=== PATIENT | male | born 1945 | race Caucasian/White ===

== ENCOUNTER 2017-09-28 14:27 | Outpatient (CLI) | payer MEDICARE | END 2017-09-28 14:28 | disposition home or self-care (01) | LOC: BICULT 14:27 | PROVIDERS: ATTEND Internal Medicine Geriatric Medicine | DX: N18.2 Chronic kidney disease, stage 2 (mild) (principal); N21.0 Calculus in bladder; N28.1 Cyst of kidney, acquired | CPT/HCPCS: 76770 ==

== ENCOUNTER 2017-10-16 13:36 | Emergency (ER) | payer MEDICARE ==
[2017-10-16 14:23] LABS: #Basophils 0.1 thou/uL (0.0-0.2); #Eosinphils 0.4 thou/uL (0.0-0.7); #Lymphocytes 1.5 thou/uL (1.20-3.40); #Monocytes 0.6 thou/uL (0.11-0.59); #Neutrophils 5.4 thou/uL (1.40-6.50); %Basophils 0.7 % (0.0-1.0); %Eosinophils 5.4 % (0.0-10.0); %Lymphocytes 18.6 % (21.0-51.0); %Monocytes 7.6 % (0.0-10.0); %Neutrophils 67.6 % (42.0-75.0); Hemoglobin 15.3 g/dL (14.0-18.0); Mean Corpuscular Hemoglobin 30.8 pg (27.0-31.0); Mean Corpuscular Volume 90.5 fL (78.0-98.0); Mean Platelet Volume 9.1 fL (7.4-10.4); Platelet Count 150 thou/uL (130-400); RBC Distribution Width 12.5 % (11.5-14.5); Red Blood Cell (RBC) Count 4.97 mill/uL (4.70-6.10)
[2017-10-16 14:47] LABS: ALT (SGPT) 29 U/L (8-55); AST (SGOT) 27 U/L (5-34); Albumin 4.2 g/dL (3.4-4.8); Alkaline Phosphatase 98 U/L (40-150); Anion Gap 14 mmol/L (10-20); BUN (Urea Nitrogen) 21 mg/dL (8.4-25.7); Bilirubin, Total 0.4 mg/dL (0.2-1.2); CK (CPK) 190 U/L (30-200); Calc. Creatinine Clearance 0 mL/min (70-130); Calcium 9.3 mg/dL (7.8-10.44); Carbon Dioxide 20 mmol/L (23-31); Chloride 107 mmol/L (98-107); Estimated GFR-MDRD 44; Globulin 3.2 g/dL (2.4-3.5); Glucose 116 mg/dL (83-110); Magnesium 2.3 mg/dL (1.6-2.6); Potassium 3.7 mmol/L (3.5-5.1); Protein, Total 7.4 g/dL (5.8-8.1); Sodium 137 mmol/L (136-145); Troponin I Less than 0.010 ng/mL (< 0.028)
[2017-10-16 16:41] LABS: Bilirubin Negative (Negative); Blood, Urine Negative (Negative); Clarity CLEAR (Clear); Glucose, Urine (Dipstick) Negative (Negative); Leukocyte Moderate (Negative); Nitrite Negative (Negative); Protein, Urine (Dipstick) Negative (Neg-Trace); Specific Gravity, Urine 1.011 (1.002-1.036); Urobilinogen 0.2 mg/dL (0.2-1.0)
[2017-10-16 16:50] LABS: Bacteria/HPF None Seen HPF (None Seen); Hyaline Casts/LPF 0-3 HYALINE CAST LPF (0-3 Hyaline); Pathc Cast-AUWi Flag 0.72 (0-2.49); RBC/HPF 0-3 HPF (0-3); Squamous Epithelial 0-3 HPF (0-3); WBC/HPF 21-50 HPF (0-3)
== END 2017-10-16 19:09 | disposition home or self-care (01) ==
LOC: ERS 13:36
DX: R00.1 Bradycardia, unspecified (principal); R53.1 Weakness; I10 Essential (primary) hypertension
CPT/HCPCS: 36415; 80053; 81003; 81015; 82553; 83605; 83735; 83880; 84484; 85025; 87077; 87086; 87186; 93005; 96360

== ENCOUNTER 2018-03-09 06:53 | Outpatient (CLI) | payer MEDICARE ==
[2018-03-09 15:02] LABS: Hemoglobin 15.5 g/dL (14.0-18.0); Mean Corpuscular HGB CONC 33.2 g/dL (32.0-36.0); Mean Corpuscular Hemoglobin 30.4 pg (27.0-31.0); Mean Corpuscular Volume 91.5 fL (78.0-98.0); Mean Platelet Volume 9.1 fL (7.4-10.4); Platelet Count 171 thou/uL (130-400); RBC Distribution Width 11.9 % (11.5-14.5); Red Blood Cell (RBC) Count 5.08 mill/uL (4.70-6.10); White Blood Cell (WBC) Count 9.1 thou/uL (4.8-10.8)
[2018-03-09 15:09] LABS: PTT 27.7 SEC (22.9-36.1); Prothrombin Time 13.4 SEC (12.0-14.7)
[2018-03-09 15:21] LABS: Anion Gap 14 mmol/L (10-20); BUN (Urea Nitrogen) 30 mg/dL (8.4-25.7); Calc. Creatinine Clearance 0 mL/min (70-130); Calcium 9.7 mg/dL (7.8-10.44); Carbon Dioxide 24 mmol/L (23-31); Chloride 107 mmol/L (98-107); Estimated GFR-MDRD 40; Glucose 101 mg/dL (83-110); Potassium 4.6 mmol/L (3.5-5.1); Sodium 140 mmol/L (136-145)
== END 2018-03-09 06:54 | disposition home or self-care (01) ==
LOC: LABBT 06:53
PROVIDERS: ATTEND Urology
DX: Z01.812 Encounter for preprocedural laboratory examination (principal); N21.0 Calculus in bladder
CPT/HCPCS: 80048; 85027; 85610; 85730; 87077; 87086; 87186

== ENCOUNTER 2018-03-15 05:40 | Day surgery (SDC) | payer MEDICARE ==
[2018-03-09 14:10] VITALS: BMI 34.2
[2018-03-15] MEDS ORDERED: Fentanyl 100 MCG/2 ML VIAL ONE ×2 (06:44→07:20)
[2018-03-15] MEDS ORDERED: Sodium Chloride 0.9% 100 ML ONE (07:25)
[2018-03-15] MEDS ORDERED: CEFAZOLIN 1 GM VIAL ONE (07:25)
[2018-03-15] MEDS ORDERED: Dexamethasone 20 MG/5 ML VIAL ONE (13:54)
[2018-03-15] MEDS ORDERED: PROPOFOL 200 MG/20 ML VIAL ONE (13:54)
[2018-03-15] MEDS ORDERED: Lidocaine 1% PF 5 ML VIAL ONE (13:54)
[2018-03-15] MEDS ORDERED: Succinylcholine Chloride 20 MG/ML 10 ml SYRINGE FS ONE (13:54)
[2018-03-15] MEDS ORDERED: Ondansetron PF 4 MG/2 ML Vial ONE (13:54)
--- NOTE | 2018-03-15 15:13 | OP ---
DATE OF PROCEDURE: 03/15/2018 PREOPERATIVE DIAGNOSIS: Bladder stone. POSTOPERATIVE DIAGNOSIS: Bladder stone. PROCEDURES PERFORMED: Cysto and laser lithotripsy of bladder stones. ANESTHETIC: General. ESTIMATED BLOOD LOSS: Less than 100. DRAINS PLACED: A 20-[place] Morales with about 20 mL in the balloon. FINDINGS: Greater than 2 cm bladder stone, very large prostate, mild meatal stenosis that is not significant enough to require dilatation to the 22-[place] sheath. DESCRIPTION OF PROCEDURE: After obtained written and verbal consent from the patient, after receiving 1 g of Ancef, he was taken to the operating suite. He was placed in supine position on the treatment table. PlexiPulses were placed on his lower extremities and turned on. He was given a general anesthetic and oral obturator intubation. He was then placed in the dorsal lithotomy position. He was sterilely prepped and draped. Cystoscopy was performed with a 22-[place] sheath. This was well lubricated and gently passed through the male urethra through the prostatic urethra into the urinary bladder under direct vision with the aid of a 30-degree lens video camera and monitor. The bladder was filled and emptied number of times being examined with both the 30 and 70-degree lens. At this point, we went back to the 30-degree lens and brought in a holmium laser fiber and used this to break up the stone into multiple fragments. We then took out these fragments. We then reinspected the bladder, found no significant bladder stones remaining. Ureteral orifices in normal position, uninjured. There was no evidence of any significant injury to the bladder itself. There was some bleeding from the prostatic urethra and some mucosal bleeding is common after this, nothing of any significance. At this point, the instruments were removed. Morales catheter was placed. It was hand irrigated with clear to light pink. It was then hooked up to a drainage bag. He was taken out of the dorsal lithotomy position, awakened, extubated, and taken by stretcher to the recovery room. Used a Velcro leg strap to gently secure the Morales to his right leg. Job ID: [id number]
--- NOTE | 2018-03-18 05:34 | PQF ---
[facility] POST DISCHARGE CLINICAL DOCUMENTATION IMPROVEMENT CLARIFICATION FORM l Todays Date: 03/18/18 l Patients Name NIKO SMITH JR l l l Admit Date 03/15/18 l Disch Date 03/15/18 Commercial Driver Name Gino Carroll Email: [email or web address] Cell: [phone] To be completed by Commercial Driver: Present Clinical Indicators - Signs / Symptoms Results and Location in Medical Record [ ] Documentation of: [ ] [ ] Documentation of: [ ] [ ] Documentation of: [ ] [ ] Documentation of: [ ] [ ] Risks [ ] [ ] [ ] Treatment [x ] Greater than 2cm bladder stone Query if bladder stone is greater than or equal to 2.5 cm [ ] [ ] To be completed by Physician: VASILIY GUPTA The documentation in this patients record requires clarification to ensure coding compliance and accuracy. Check the appropriate box and include in your discharge summary. [ ] [ ] [ ] [ ] Please check this box if this does not apply to this patient [ ] Unable to determine [ ] Other diagnosis: Review the following information and exercise your independent professional judgment in responding to the clarification. Based upon the clinical findings, risk factors, and treatment, please clarify if you are treating one of the above probable or suspected diagnoses. Physician Signature: Date Time MTDD
[2018-03-18 14:20] LABS: CA Oxalate Monohydrate 97 % (.); Color Brown (.); Comment Note: (.); Stone Weight 450.3 mg (.)
== END 2018-03-15 12:14 | disposition home or self-care (01) ==
LOC: SDC 05:40
PROVIDERS: ATTEND Urology
PROC: 0TCB8ZZ Extirpation of Matter from Bladder, Via Natural or Artificial Opening Endoscopic (ICD-10-PCS; principal; 2018-03-15)
DX: N21.0 Calculus in bladder (principal); N40.0 Benign prostatic hyperplasia without lower urinary tract symptoms; N35.911 Unspecified urethral stricture, male, meatal; I10 Essential (primary) hypertension; Z79.82 Long term (current) use of aspirin; Z79.899 Other long term (current) drug therapy; Z88.5 Allergy status to narcotic agent
CPT/HCPCS: 52317; 82365; 88300; C1758; J0690; J1100; J2001; J2405; J2704; J3010; J7050

== ENCOUNTER 2019-07-25 09:34 | Outpatient (CLI) | payer MEDICARE ==
--- NOTE | 2019-07-25 15:34 | MRI ---
MRI OF THE PELVIS WITHOUT AND WITH CONTRAST: Comparison: None History: Prostate cancer Technique: Multiplanar, multisequence MRI images were obtained of the prostate without and with IV co ntrast. FINDINGS: There is moderate to severe hypertrophy of the central gland consistent BPH. Prostate volume is estim ated at 110 ml. Scattered areas of low T2 signal are seen in the central gland of the prostate. No di screte suspicious low T2 signal lesion is seen within the central gland of the prostate and the scatt ered foci of low T2 signal most likely representing BPH nodules. No restricted diffusion or low signa l is seen on ACD map in the peripheral zone of the prostate. The seminal vesicles are intact. The neurovascular bungles are intact. No pelvic adenopathy is seen. No marrow signal abnormality is present. The post contrast images show no suspicious areas of early enhancement in the prostate. The delayed i mages were not performed and the exam was terminated early because of too high of a temperature on th e MRI magnet. IMPRESSION: PIRADS category 2 - low likelihood that a clinically significant cancer is present. POS: [id number]
[2019-07-25] MEDS ORDERED: Magnevist 469MG/ML 20 ML VIAL ONE (15:46)
== END 2019-07-25 09:35 | disposition home or self-care (01) ==
LOC: TBSIIMAG 09:34
PROVIDERS: ATTEND Urology
DX: C61 Malignant neoplasm of prostate (principal)
CPT/HCPCS: 72197; 82565; A9579

== ENCOUNTER 2021-07-13 04:41 | Observation (INO) | payer MEDICARE ==
[2021-07-13] MEDS ORDERED: Nitroglycerin 2% Ointment 1 INCH/1 GM Packet ONE (05:24)
[2021-07-13] MEDS ORDERED: Aspirin 325 MG TAB ONE (05:24)
[2021-07-13 05:29] LABS: #Basophils 0.1 thou/uL (0.0-0.2); #Eosinphils 0.5 thou/uL (0.0-0.7); #Lymphocytes 1.5 thou/uL (1.20-3.40); #Monocytes 0.8 thou/uL (0.11-0.59); #Neutrophils 6.7 thou/uL (1.40-6.50); %Basophils 0.6 % (0.0-1.0); %Eosinophils 5.3 % (0.0-10.0); %Lymphocytes 15.2 % (21.0-51.0); %Monocytes 8.8 % (0.0-10.0); %Neutrophils 70.1 % (42.0-75.0); Hemoglobin 14.7 g/dL (14.0-18.0); Mean Corpuscular HGB CONC 33.2 g/dL (32.0-36.0); Mean Corpuscular Hemoglobin 31.2 pg (27.0-31.0); Mean Corpuscular Volume 94.1 fL (78.0-98.0); Mean Platelet Volume 8.4 fL (7.4-10.4); Platelet Count 159 thou/uL (130-400); Red Blood Cell (RBC) Count 4.71 mill/uL (4.70-6.10); White Blood Cell (WBC) Count 9.6 thou/uL (4.8-10.8)
[2021-07-13 05:52] LABS: ALT (SGPT) 34 U/L (8-55); AST (SGOT) 26 U/L (5-34); Albumin 3.9 g/dL (3.4-4.8); Alkaline Phosphatase 69 U/L (40-110); Anion Gap 11 mmol/L (10-20); BUN (Urea Nitrogen) 25 mg/dL (8.4-25.7); Bilirubin, Total 1.1 mg/dL (0.2-1.2); Calc. Creatinine Clearance 0 mL/min (70-130); Carbon Dioxide 24 mmol/L (23-31); Chloride 105 mmol/L (98-107); Globulin 2.8 g/dL (2.4-3.5); Glucose 114 mg/dL (83-110); Lipase 41 U/L (8-78); Potassium 4.3 mmol/L (3.5-5.1); Protein, Total 6.7 g/dL (5.8-8.1); Sodium 136 mmol/L (136-145)
[2021-07-13] MEDS ORDERED: Acetaminophen 325 MG TAB PO PRN (08:18)
[2021-07-13 08:55] LABS: Troponin I Less than 0.010 ng/mL (< 0.028)
[2021-07-13] MEDS ORDERED: Lisinopril 20 MG TAB PO SCH (09:00)
[2021-07-13] MEDS: Finasteride 5 MG TAB PO SCH (10:15)
[2021-07-13] MEDS: Amlodipine 5 MG TAB PO SCH (10:15)
[2021-07-13] MEDS: Loratadine 10 MG TAB PO SCH (10:15)
[2021-07-13 10:51] VITALS: BMI 35.6
[2021-07-13 11:21] LABS: SARS-CoV-2 NAA Rapid Test Not Detected (NotDetected)
[2021-07-13] MEDS: Sodium Chloride 0.9% 1,000 ML IV SCH ×2 (11:53→21:33)
[2021-07-13 12:02] LABS: Troponin I Less than 0.010 ng/mL (< 0.028)
[2021-07-13] MEDS: Nitroglycerin 2% Ointment 1 INCH/1 GM Packet TOP SCH ×2 (14:49→22:33)
[2021-07-13 15:10] LABS: Bilirubin Negative (Negative); Blood, Urine Negative (Negative); Clarity Clear (Clear); Glucose, Urine (Dipstick) Normal (Negative); Ketone, Urine Negative (Negative); Leukocyte Negative Leu/uL (Negative); Nitrite Negative (Negative); Protein, Urine (Dipstick) Negative (Neg-Trace); Specific Gravity, Urine 1.044 (1.002-1.036); Urobilinogen Normal mg/dL (Less than 2)
[2021-07-13] MEDS ORDERED: Morphine 2 MG/ML VIAL SLOW IVP PRN (16:23)
[2021-07-13] MEDS ORDERED: Iopamidol-370 76% 500 ML 1 ML ONE (16:24)
[2021-07-13] MEDS ORDERED: Ibuprofen 800 MG TAB PO SCH (16:30)
[2021-07-13] MEDS ORDERED: Simvastatin 10 MG TAB PO SCH (21:00)
[2021-07-13] MEDS ORDERED: ALPRAZolam 0.5 MG TAB PO SCH (21:00)
[2021-07-14] MEDS: Nitroglycerin 2% Ointment 1 INCH/1 GM Packet TOP SCH (06:14)
[2021-07-14] MEDS: Finasteride 5 MG TAB PO SCH (08:44)
[2021-07-14] MEDS: Amlodipine 5 MG TAB PO SCH (08:44)
[2021-07-14] MEDS: Loratadine 10 MG TAB PO SCH (08:44)
[2021-07-14] MEDS: Sodium Chloride 0.9% 1,000 ML IV SCH (08:47)
[2021-07-14] MEDS ORDERED: Aspirin 81 mg Enteric Coated Tablet PO SCH (09:00)
[2021-07-14 11:38] VITALS: BP 151/72; TEMP 97.6
== END 2021-07-14 15:59 | disposition home or self-care (01) ==
LOC: ERS 04:41 → 2SW 07:48
PROVIDERS: ADMIT Hospitalist; ATTEND Hospitalist
DX: R07.81 Pleurodynia (principal); M25.512 Pain in left shoulder; I25.10 Atherosclerotic heart disease of native coronary artery without angina pectoris; R50.9 Fever, unspecified; I10 Essential (primary) hypertension; E78.5 Hyperlipidemia, unspecified; I08.8 Other rheumatic multiple valve diseases; Z85.46 Personal history of malignant neoplasm of prostate; Z79.82 Long term (current) use of aspirin; Z79.899 Other long term (current) drug therapy; Z88.5 Allergy status to narcotic agent; Z95.5 Presence of coronary angioplasty implant and graft; Z20.822 Contact with and (suspected) exposure to COVID-19
CPT/HCPCS: 0240U; 71045; 71275; 80053; 81003; 83690; 84484 ×2; 85025; 85379; 87040; 93005; 93306; 94760; 99285; 36415; 93010; 96360; 96361; G0378; J7050; Q9967

== ENCOUNTER 2024-01-11 04:16 | Emergency (ER) | payer MEDICARE ==
[2024-01-11] MEDS ORDERED: Benzonatate 100 MG CAP ONE (04:59)
[2024-01-11 05:50] LABS: #Basophils 0.08 10x3/uL (0.0-0.2); %Basophils 0.9 % (0.0-1.0); %Eosinophils 6.5 % (0.0-10.0); %Monocytes 9.1 % (0.0-10.0); Hematocrit 43.2 % (42.0-52.0); Hemoglobin 13.9 g/dL (14.0-18.0); Mean Corpuscular HGB CONC 32.2 g/dL (32.0-36.0); Mean Corpuscular Hemoglobin 30.3 pg (27.0-31.0); Mean Corpuscular Volume 94.3 fL (78.0-98.0); Mean Platelet Volume 10.6 fL (7.4-10.4); Platelet Count 179 10x3/uL (130-400); RBC Distribution Width 12.7 % (11.5-14.5); Red Blood Cell (RBC) Count 4.58 mill/uL (4.70-6.10)
[2024-01-11 05:51] LABS: ALT (SGPT) 55 U/L (8-55); AST (SGOT) 51 U/L (5-34); Albumin 3.6 g/dL (3.4-4.8); Alkaline Phosphatase 73 U/L (40-110); Anion Gap 14 mmol/L (10-20); BUN (Urea Nitrogen) 21 mg/dL (8.4-25.7); Bilirubin, Total 0.6 mg/dL (0.2-1.2); Calc. Creatinine Clearance 0 mL/min (70-130); Calcium 9.2 mg/dL (7.8-10.44); Carbon Dioxide 19 mmol/L (23-31); Chloride 109 mmol/L (98-107); Estimated GFR 52; Glucose 86 mg/dL (83-110); Lipase 55 U/L (8-78); Potassium 4.2 mmol/L (3.5-5.1); Protein, Total 6.6 g/dL (5.8-8.1); Sodium 138 mmol/L (136-145)
[2024-01-11 05:56] LABS: Troponin I Less than 0.010 ng/mL (< 0.028)
[2024-01-11] MEDS ORDERED: Amlodipine 5 MG TAB ONE (06:51)
== END 2024-01-11 07:24 | disposition home or self-care (01) ==
LOC: ERS 04:16
DX: J18.9 Pneumonia, unspecified organism (principal); I10 Essential (primary) hypertension; E78.5 Hyperlipidemia, unspecified; I25.10 Atherosclerotic heart disease of native coronary artery without angina pectoris; Z95.0 Presence of cardiac pacemaker; Z95.5 Presence of coronary angioplasty implant and graft
CPT/HCPCS: 36415; 71045; 80053; 83605; 83690; 84484; 85025; 87428; 93005

== ENCOUNTER 2024-10-28 11:00 | Day surgery (SDC) | payer MEDICARE ==
[2024-10-26 15:55] VITALS: BMI 34.4
[2024-10-28] MEDS ORDERED: Iopamidol 370 76% 100 ML VIAL ONE (11:07)
[2024-10-28] MEDS ORDERED: Lidocaine 1% (PF) 30 ML VIAL ONE (12:57)
[2024-10-28] MEDS ORDERED: Heparin 10,000 UNITS/ 10 ML VIAL ONE (12:57)
[2024-10-28] MEDS ORDERED: PHENYLEPHRINE-NS 100 MCG/ML 10 ML SYRINGE ONE (12:58)
[2024-10-28] MEDS ORDERED: Nitroglycerin 50 MG/250 ML BOT 250 ML ONE (12:58)
== END 2024-10-28 21:45 | disposition home or self-care (01) ==
LOC: CCL 11:00
PROVIDERS: ATTEND Internal Medicine Cardiovascular Disease
PROC: 4A023N7 Measurement of Cardiac Sampling and Pressure, Left Heart, Percutaneous Approach (ICD-10-PCS; principal; 2024-10-28)
DX: I25.10 Atherosclerotic heart disease of native coronary artery without angina pectoris (principal); E78.5 Hyperlipidemia, unspecified; I11.0 Hypertensive heart disease with heart failure; N18.9 Chronic kidney disease, unspecified; Z88.5 Allergy status to narcotic agent; Z79.899 Other long term (current) drug therapy; Z79.01 Long term (current) use of anticoagulants
CPT/HCPCS: 85347; 93458; C1769 ×3; C1887; C1894 ×2; J1644; J2250; 99152; 99153; J0461; J3010

== ENCOUNTER → 2024-10-28 | Day surgery (SDC) | payer MEDICARE ==
[2024-10-26 16:31] LABS: #Basophils 0.08 10x3/uL (0.0-0.2); #Eosinophils 0.66 10x3/uL (0.0-0.7); #Monocytes 0.87 10x3/uL (0.11-0.59); #Neutrophils 6.20 10x3/uL (1.40-6.50); %Basophils 0.8 % (0.0-1.0); %Eosinophils 6.7 % (0.0-10.0); %Lymphocytes 19.9 % (21.0-51.0); %Monocytes 8.9 % (0.0-10.0); %Neutrophils 63.5 % (42.0-75.0); Hematocrit 46.0 % (42.0-52.0); Hemoglobin 15.2 g/dL (14.0-18.0); Mean Corpuscular Hemoglobin 30.0 pg (27.0-31.0); Mean Corpuscular Volume 90.9 fL (78.0-98.0); Platelet Count 173 10x3/uL (130-400); Red Blood Cell (RBC) Count 5.06 mill/uL (4.70-6.10); White Blood Cell (WBC) Count 9.78 10x3/uL (4.8-10.8)
[2024-10-26 17:09] LABS: ALT (SGPT) 41 U/L (Less than 45); AST (SGOT) 39 U/L (11-34); Albumin 4.1 g/dL (3.1-4.5); Alkaline Phosphatase 82 U/L (40-110); Anion Gap 16 mmol/L (10-20); BUN (Urea Nitrogen) 29 mg/dL (8.4-25.7); Bilirubin, Direct 0.2 mg/dL (0.1-0.3); Bilirubin, Total 0.4 mg/dL (0.3-1.2); Calc. Creatinine Clearance 0 mL/min (70-130); Calcium 9.3 mg/dL (7.8-10.44); Carbon Dioxide 20 mmol/L (23-31); Chloride 108 mmol/L (98-107); Globulin 3.2 g/dL (2.4-3.5); Glucose 88 mg/dL (83-110); Potassium 4.2 mmol/L (3.5-5.1); Sodium 140 mmol/L (136-145)
== END ==
LOC: LABBT 10-26 15:38
PROVIDERS: ATTEND Internal Medicine Cardiovascular Disease
DX: Z01.818 Encounter for other preprocedural examination (principal); R94.39 Abnormal result of other cardiovascular function study
CPT/HCPCS: 80053; 80076; 85025; 93005; 93010